=== PATIENT | male | born 1945 ===

== ENCOUNTER 2017-03-11 07:27 | Inpatient (IN) | payer MEDICARE, MEDICAID ==
[~2017-03-11] VITALS: Ht 165.1 cm; Wt 53.5 kg
[2017-03-11] VITALS (12 sets, daily range): BP systolic 116–171; BP diastolic 61–87
[2017-03-11] MEDS ORDERED: ASPI-757 PO (07:48)
--- NOTE | 2017-03-11 07:48 | ER Report ---
History and Physical Time Seen By MD: 07:40 HPI/ROS CC: Nausea and vomiting HPI: 71-year-old male with a past medical history of mental delay, suicidal mediations and attempts, hypertension presents to the emergency department with nausea and vomiting by 4 days. Apparently today he did have an emesis which was dark in nature. It is hard to ascertain whether or not it was coffee-ground. He has also had diarrhea. Today his stools are soft but not watery. He does complain of abdominal pain that hard to ascertain exactly the nature, characteristic, or level of the pain. I cannot get any more information from the patient. The caregiver is giving partial information but not specifics. When I looked in the patient's mouth does appear to be coffee-ground in nature as it is staining underwear from the mouth. My concern is possible GI bleed. ROS: 12 point review of systems essentially negative other than what's mentioned in history of present illness. NURSES AND OLD MEDICAL RECORDS: Reviewed PMH: Reviewed SURGICAL HX: Reviewed FAMILY HX: Noncontributory SOCIAL HX: Patient has a sheltered home. VITAL SIGNS: Reviewed CONSTITUTIONAL: 70-year-old male in moderate distress. PHYSICAL EXAM: HEENT: Pupils equal round reactive to light and accommodate, EOMI, tympanic membranes pearly white umbo present with good light reflex. Lips dry mucous membranes moist gums nonbleeding uvula midline and rises equally with phonation, oropharynx noninjected, teeth intact. NECK: Neck supple, thyroid not appreciated, anterior and posterior cervical lymphadenopathy not appreciated. Trachea midline and rises equally with phonation. CARDIAC: S1-S2 regular rate rhythm no murmurs rubs or gallops. LUNGS: Lungs clear bilaterally posteriorly in all morillo. Good air movement. ABDOMEN: Abdomen soft, nondistended, bowel sounds active in all 4 quadrants, no bruits noted, no CVA tenderness. MUSCULOSKELETAL: Strength 4 out of 5 x 4 extremities, no deformities noted. NEUROLOGIC: Patient alert and oriented by 3 Allergies: Coded Allergies: Penicillins (Verified Allergy, Mild, 03/11/17) chlorpromazine (Verified Allergy, Unknown, 03/11/17) Home Meds Reported Medications Bupropion Hcl (BUPROPION HCL) 100 Mg Tablet, 100 MG PO BID, TAB 03/11/17 Bacitracin/Polymyxin B Sulfate (BACITRACIN-POLYMYXIN EYE OINT) 3.5 Gm Oint...g. , 3.5 GM OP 03/11/17 Atenolol (ATENOLOL) 50 Mg Tablet, 2 TAB PO QDAY, TAB 03/11/17 Aspirin (ASPIRIN) 325 Mg Tablet, 325 MG PO Q4-6H Y for prevent stroke, TAB 03/11/17 Constitutional Vital Sign - Last 24 Hours 03/11/17 03/11/17 03/11/17 03/11/17 07:40 07:42 07:45 07:57 Temp 98.3 Pulse ??? 75 Resp 18 B/P (MAP) 104/62 (76) Pulse Ox 92 O2 Delivery Room Air 03/11/17 03/11/17 03/11/17 03/11/17 08:02 08:11 08:12 08:15 Pulse ??? B/P (MAP) 82/39 (53) 100/61 (74) 100/59 (73) Pulse Ox 89 03/11/17 03/11/17 03/11/17 03/11/17 08:27 08:30 08:45 08:57 Pulse 72 ??? B/P (MAP) 113/65 (81) 116/58 (77) Pulse Ox 90 94 03/11/17 03/11/17 03/11/17 03/11/17 09:00 09:12 09:15 09:15 Pulse 75 B/P (MAP) 119/63 (81) 104/56 (72) Pulse Ox 84 O2 Flow Rate 2.0 03/11/17 03/11/17 03/11/17 03/11/17 09:20 09:30 09:35 09:45 Pulse ??? 73 B/P (MAP) 118/89 (99) 119/73 (88) Pulse Ox 96 03/11/17 03/11/17 03/11/17 03/11/17 09:50 10:00 10:05 10:15 Pulse 73 73 B/P (MAP) 128/66 (86) 129/71 (90) Pulse Ox 97 97 03/11/17 10:20 Pulse 76 Pulse Ox 96 Intake and Output 03/11/17 03/11/17 03/12/17 15:00 23:00 07:00 Intake Total 1000 ml Balance 1000 ml Medical Decision Making Data Points Result Diagram: 03/11/1782903/11/17 0830 Laboratory Hematology Test 03/11/17 00:00 03/11/17 08:30 03/11/17 10:45 Stool Occult Blood (IFOB) Negative (NEGATIVE) Red Blood Count 4.37 M/uL (4.00-5.60) Mean Corpuscular Volume 95.1 fL (80.0-96.0) Mean Corpuscular Hemoglobin 32.8 pg (26.0-33.0) Mean Corpuscular Hemoglobin Concent 34.5 g/dL (32.0-36.0) Red Cell Distribution Width 14.9 % (11.5-14.5) Mean Platelet Volume 9.3 fL (7.2-11.1) Neutrophils (%) (Auto) 72.6 % (39.4-72.5) Lymphocytes (%) (Auto) 14.1 % (17.6-49.6) Monocytes (%) (Auto) 13.2 % (4.1-12.4) Eosinophils (%) (Auto) 0.0 % (0.4-6.7) Basophils (%) (Auto) 0.1 % (0.3-1.4) Nucleated RBC Relative Count (auto) 0.0 /100WBC Neutrophils # (Auto) 6.1 K/uL (2.0-7.4) Lymphocytes # (Auto) 1.2 K/uL (1.3-3.6) Monocytes # (Auto) 1.1 K/uL (0.3-1.0) Eosinophils # (Auto) 0.0 K/uL (0.0-0.5) Basophils # (Auto) 0.0 K/uL (0.0-0.1) Nucleated RBC Absolute Count (auto) 0.00 K/uL Peripheral Blood Smear No Y/N Prothrombin Time 14.5 seconds (12.0-14.4) Prothromb Time International Ratio 1.12 Activated Partial Thromboplast Time 30 seconds (23-35) Sodium Level 136 mmol/L (137-145) Potassium Level 4.8 mmol/L (3.5-5.0) Chloride Level 101 mmol/L (98-107) Carbon Dioxide Level 23 mmol/L (22-30) Blood Urea Nitrogen 34 mg/dl (9-21) Creatinine 1.10 mg/dl (0.66-1.25) Glomerular Filtration Rate Calc > 60.0 Random Glucose 296 mg/dl (75-110) Calcium Level 9.6 mg/dl (8.4-10.2) Total Bilirubin 1.0 mg/dl (0.2-1.3) Aspartate Amino Transf (AST/SGOT) 13 U/L (0-35) Alanine Aminotransferase (ALT/SGPT) 25 U/L (0-56) Alkaline Phosphatase 60 U/L (0-126) Total Protein 5.9 gm/dl (6.3-8.2) Albumin 3.0 g/dl (3.5-5.0) Amylase Level < 30 U/L (0-110) Lipase 20 U/L (23-300) Urine Color Yellow Urine Clarity Slightly-cloudy Urine pH 5.0 pH (4.8-9.5) Urine Specific [place] 1.023 Urine Protein Negative mg/dL (NEGATIVE) Urine Glucose (UA) 500 mg/dL (NEGATIVE) Urine Ketones Trace mg/dL (NEGATIVE) Urine Blood Negative (NEGATIVE) Urine Nitrite Negative (NEGATIVE) Urine Bilirubin Negative (NEGATIVE) Urine Urobilinogen Negative mg/dL (0.2-1.9) Urine Leukocyte Esterase Negative (NEGATIVE) Urine RBC <1 /HPF (0-2/HPF) Urine WBC 3 /HPF (0-5/HPF) Urine Squamous Epithelial Cells None /LPF (</=FEW) Urine Transitional Epithelial Cells Few /LPF (NONE-FEW) Urine Bacteria Negative /HPF (NONE-FEW) Urine Hyaline Casts Moderate /LPF (NONE-FEW) Urine Mucus Few /HPF (NONE-FEW) Chemistry Test 03/11/17 00:00 03/11/17 08:30 03/11/17 10:45 Stool Occult Blood (IFOB) Negative (NEGATIVE) White Blood Count 8.4 k/uL (4.5-11.0) Red Blood Count 4.37 M/uL (4.00-5.60) Hemoglobin 14.3 g/dL (14.0-18.0) Hematocrit 41.6 % (42.0-52.0) Mean Corpuscular Volume 95.1 fL (80.0-96.0) Mean Corpuscular Hemoglobin 32.8 pg (26.0-33.0) Mean Corpuscular Hemoglobin Concent 34.5 g/dL (32.0-36.0) Red Cell Distribution Width 14.9 % (11.5-14.5) Platelet Count 222 K/uL (150-450) Mean Platelet Volume 9.3 fL (7.2-11.1) Neutrophils (%) (Auto) 72.6 % (39.4-72.5) Lymphocytes (%) (Auto) 14.1 % (17.6-49.6) Monocytes (%) (Auto) 13.2 % (4.1-12.4) Eosinophils (%) (Auto) 0.0 % (0.4-6.7) Basophils (%) (Auto) 0.1 % (0.3-1.4) Nucleated RBC Relative Count (auto) 0.0 /100WBC Neutrophils # (Auto) 6.1 K/uL (2.0-7.4) Lymphocytes # (Auto) 1.2 K/uL (1.3-3.6) Monocytes # (Auto) 1.1 K/uL (0.3-1.0) Eosinophils # (Auto) 0.0 K/uL (0.0-0.5) Basophils # (Auto) 0.0 K/uL (0.0-0.1) Nucleated RBC Absolute Count (auto) 0.00 K/uL Peripheral Blood Smear No Y/N Prothrombin Time 14.5 seconds (12.0-14.4) Prothromb Time International Ratio 1.12 Activated Partial Thromboplast Time 30 seconds (23-35) Glomerular Filtration Rate Calc > 60.0 Calcium Level 9.6 mg/dl (8.4-10.2) Total Bilirubin 1.0 mg/dl (0.2-1.3) Aspartate Amino Transf (AST/SGOT) 13 U/L (0-35) Alanine Aminotransferase (ALT/SGPT) 25 U/L (0-56) Alkaline Phosphatase 60 U/L (0-126) Total Protein 5.9 gm/dl (6.3-8.2) Albumin 3.0 g/dl (3.5-5.0) Amylase Level < 30 U/L (0-110) Lipase 20 U/L (23-300) Urine Color Yellow Urine Clarity Slightly-cloudy Urine pH 5.0 pH (4.8-9.5) Urine Specific [place] 1.023 Urine Protein Negative mg/dL (NEGATIVE) Urine Glucose (UA) 500 mg/dL (NEGATIVE) Urine Ketones Trace mg/dL (NEGATIVE) Urine Blood Negative (NEGATIVE) Urine Nitrite Negative (NEGATIVE) Urine Bilirubin Negative (NEGATIVE) Urine Urobilinogen Negative mg/dL (0.2-1.9) Urine Leukocyte Esterase Negative (NEGATIVE) Urine RBC <1 /HPF (0-2/HPF) Urine WBC 3 /HPF (0-5/HPF) Urine Squamous Epithelial Cells None /LPF (</=FEW) Urine Transitional Epithelial Cells Few /LPF (NONE-FEW) Urine Bacteria Negative /HPF (NONE-FEW) Urine Hyaline Casts Moderate /LPF (NONE-FEW) Urine Mucus Few /HPF (NONE-FEW) Coagulation Test 03/11/17 08:30 Prothrombin Time 14.5 seconds Prothromb Time International Ratio 1.12 Activated Partial Thromboplast Time 30 seconds Urinalysis Test 03/11/17 10:45 Urine Color Yellow Urine Clarity Slightly-cloudy Urine pH 5.0 pH (4.8-9.5) Urine Specific [place] 1.023 Urine Protein Negative mg/dL (NEGATIVE) Urine Glucose (UA) 500 mg/dL (NEGATIVE) Urine Ketones Trace mg/dL (NEGATIVE) Urine Blood Negative (NEGATIVE) Urine Nitrite Negative (NEGATIVE) Urine Bilirubin Negative (NEGATIVE) Urine Urobilinogen Negative mg/dL (0.2-1.9) Urine Leukocyte Esterase Negative (NEGATIVE) Urine RBC <1 /HPF (0-2/HPF) Urine WBC 3 /HPF (0-5/HPF) Urine Squamous Epithelial Cells None /LPF (</=FEW) Urine Transitional Epithelial Cells Few /LPF (NONE-FEW) Urine Bacteria Negative /HPF (NONE-FEW) Urine Hyaline Casts Moderate /LPF (NONE-FEW) Urine Mucus Few /HPF (NONE-FEW) ED Course/Re-evaluation ED Course Patient received Protonix 40 mg IV. Patient also received fluid hydration. Patient's Hemoccult was negative but does appear to be coffee-ground emesis in his oral cavity. I discussed the case with Dr. Dejesus, surgeon. He will take the patient to the OR for EGD. Decision to Disposition Date: Mar 11, 2017 Decision to Disposition Time: 12:10 Depart Departure Latest Vital Signs Vital Signs Date Time Temp Pulse Resp B/P (MAP) Pulse Ox O2 Delivery O2 Flow Rate FiO2 03/11/17 10:20 76 96 03/11/17 10:15 129/71 (90) 03/11/17 09:15 2.0 03/11/17 07:40 98.3 18 Room Air Impression: Primary Impression: Upper GI bleed Condition: Condition Unchanged Disposition: ADMIT FROM ER TO OR WILMAN VASQUEZ MD Mar 11, 2017 07:48
[2017-03-11] MEDS ORDERED: BACI3.5O25 OD (07:49)
[2017-03-11] MEDS ORDERED: ATEN-1 PO (07:49)
[2017-03-11] MEDS ORDERED: NS(*) 0.9% 1000 ML BAG 1,000 ML IV ONE (07:57)
[2017-03-11] MEDS ORDERED: FLUSH 10 ML SYR IV ONE (08:00)
[2017-03-11] MEDS ORDERED: ONDANSETRON 4 MG/2 ML VIAL IVP ONE (08:00)
[2017-03-11] MEDS ORDERED: PANTOPRAZOLE SOD 40 MG IV VIAL IVP ONE (08:00)
[2017-03-11 08:48] LABS: PLATELET COUNT, AUTOMATED 222 K/uL (150-450)
[2017-03-11 09:03] LABS: INR 1.12
[2017-03-11] MEDS ORDERED: BUPR-149 PO (10:07)
[2017-03-11] MEDS ORDERED: NORMOSOL R SOLN(*) 1000 ML BAG 1,000 ML IV ONE (12:55)
[2017-03-11] MEDS ORDERED: SUCCINYLCHOL CHL 200MG/10ML VL ONE (15:57)
[2017-03-11] MEDS ORDERED: LIDOCAINE MPF 1% 5 ML VIAL ONE (15:57)
[2017-03-11] MEDS ORDERED: DEXAMETHASONE SOD PHOS 10MG/ML ONE (15:57)
[2017-03-11] MEDS ORDERED: ONDANSETRON 4 MG/2 ML VIAL ONE (15:57)
[2017-03-11] MEDS ORDERED: PROPOFOL EMUL(*) 10MG/ML 20 ML 20 ML ONE (15:57)
[2017-03-11] MEDS ORDERED: fentaNYL CITR 100 MCG/2 ML AMP ONE (16:17)
[2017-03-11] MEDS ORDERED: [UNRECOGNIZED DRUG - OTHER] TOP (16:19)
[2017-03-11] MEDS ORDERED: [UNRECOGNIZED DRUG - OTHER] (16:19)
[2017-03-11] MEDS ORDERED: RANI-324 PO (16:19)
[2017-03-11] MEDS ORDERED: LACT-213 PO (16:19)
[2017-03-11] MEDS ORDERED: CALC-649 PO (16:19)
[2017-03-11] MEDS ORDERED: SODCTAB PO (16:19)
[2017-03-11] MEDS ORDERED: [UNRECOGNIZED DRUG - OTHER] TOP (16:19)
[2017-03-11] MEDS ORDERED: SULF-198 PO (16:19)
[2017-03-11] MEDS ORDERED: BUPR-124 PO (16:19)
[2017-03-11] MEDS ORDERED: CETY454C2 TP (16:19)
[2017-03-11] MEDS ORDERED: MOM PO (16:19)
[2017-03-11] MEDS ORDERED: FES4PT PO (16:19)
[2017-03-11] MEDS ORDERED: MULT-865 PO (16:19)
[2017-03-11] MEDS ORDERED: VIT1CAPS39 PO (16:19)
[2017-03-11] MEDS ORDERED: DOXA2TAB58 PO (16:19)
[2017-03-11] MEDS ORDERED: VAL250 PO (16:19)
[2017-03-11] MEDS ORDERED: VALS160T22 PO (16:19)
--- NOTE | 2017-03-11 16:53 | Post Operative Note ---
Operative Note - ENT Operative Day Date: Mar 11, 2017 Time: 16:39 Physicians Surgeon: Oleg Sales Attendant: None Anesthesia: GETA Diagnosis Pre-Op Diagnosis: Upper GI Bleed Post-Op Diagnosis: Suspected Candidal Esophagitis, no ulceration or active bleeding Procedure Findings: pseudomembranous esophagitis along the entire length. Normal stomach except for large hiatal hernia. Normal duodenum. Procedure(s): EGD with Biopsy - cold forceps Specimen Removed:(Maybe N/A): 1 - Distal esophagus to pathology 2 - Mid-esophagus to micro for mitchel evaluation 3 - Proximal esophagus to pathology Complications: None Fluids Fluids: 800ml Estimated Blood Loss: <5ml Dictated Date OP Note Dictated: Mar 11, 2017 Time OP Note Dictated: 16:52 ([id number]) HARRIS COLON MD Mar 11, 2017 16:53
--- NOTE | 2017-03-11 17:09 | General Surgery Consultation ---
History of Present Illness Chief Complaint Vomiting, coffee ground emesis in the back of the mouth. History of Present Illness Mr. Hua is a 71yo male who is a resident in a senior care. He presents to the ED along with one of his caregivers who has been with him for about 4 years. He had a vomiting episode on Wednesday and again this am. This mornings vomitus was dark in color which prompted their concern to bring him to the ED. In addition to this, he has been more lethargic than normal over the past couple of days. He was seen for intractable hiccoughs on 03/02 which have persisted. He has had these once previously in 2014. He has not had any fevers or chills at home. He reportedly has a history of esophageal ulcerations in 1997 though I do not have any additional details. His last endoscopy was around 1999 with a colonoscopy in 2005. He does take Zantac as part of his regular medications. History Home Meds Reported Medications Valsartan (DIOVAN) 160 Mg Tablet, 160 MG PO DAILY 03/11/17 Valproic Acid (VALPROIC ACID) 250 Mg Cap, 250 MG PO QID, CAP 03/11/17 Fesoterodine Fumarate (TOVIAZ) 4 Mg Tabsr, 4 MG PO DAILY 03/11/17 Sodium Chloride (SODIUM CHLORIDE) 1 Gm Tab, 1 GM PO DAILY, TAB 03/11/17 Ranitidine Hcl (ZANTAC) 150 Mg Tablet, 150 MG PO BID, TAB 03/11/17 Vit C/Elisabeth Ac/Lut/Copper/Znox (PRESERVISION LUTEIN SOFTGEL) 1 Each Capsule, 1 EACH PO BID, CAPSULE 03/11/17 Magnesium Hydroxide (MILK OF MAGNESIA) 400 Mg/5 Ml Oral.susp, 30 ML PO HS, BOTTLE 03/11/17 Multivitamin (DAILY MULTIPLE VITAMIN) 1 Each Tablet, 1 TAB PO DAILY 03/11/17 [body powder] No Conflict Check, 1 JANNET TOP DAILY After showering and drying off, Kehinde should be assisted in applying cornstarch powder to his groin area each day. 03/11/17 [equate body powder] No Conflict Check, 1 JANNET TOP DAILY Sprinkle a light amount on clean, dry feet daily prior to putting on socks and shoes 03/11/17 Lactose-Free Food (ENSURE LIQUID) 237 Ml Liquid, 237 ML PO HS 03/11/17 Doxazosin Mesylate (DOXAZOSIN MESYLATE) 2 Mg Tablet, 2 MG PO HS 03/11/17 [closys toothpaste] No Conflict Check, 1 JANNET BID 03/11/17 Cetyl Alc/Stearyl Alc/Pg/Sls (CETAPHIL CREAM) 454 Gm Cream..g., 454 GM TP HS Apply to both feet before bed 03/11/17 Calcium Carbonate/Vitamin D3 (CALCIUM 600 + VIT D 200 TABLET) 1 Each Tablet, 1 EACH PO DAILY 03/11/17 Bupropion Hcl (BUPROPION XL) 150 Mg Tab.er.24h, 150 MG PO QDAY, #10 TAB 03/11/17 Bacitracin/Polymyxin B Sulfate (BACITRACIN-POLYMYXIN EYE OINT) 3.5 Gm Oint...g. , 3.5 GM OD BID 03/11/17 Atenolol (ATENOLOL) 50 Mg Tablet, 2 TAB PO QDAY, TAB 03/11/17 Aspirin (ASPIRIN) 325 Mg Tablet, 325 MG PO DAILY, TAB 03/11/17 Discontinued Reported Medications Sulfamethoxazole/Trimet 800-160 Mg Tab (BACTRIM DS TABLET) 1 Each Tablet, 1 TAB PO Q12H, TAB 1 tab by mouth every 12 hours to treat cellulitis in leg. Started 03/04/17 at 0800 -KT 03/11/17 Bupropion Hcl (BUPROPION HCL) 100 Mg Tablet, 100 MG PO BID, TAB 03/11/17 Allergies: Coded Allergies: Penicillins (Verified Allergy, Mild, 03/11/17) chlorpromazine (Verified Allergy, Unknown, 03/11/17) Review of Systems Constitutional: No Fever, No Weight Loss Gastrointestinal: Nausea, Vomiting, No Diarrhea, Other (anorexic) Exam Vital Signs Vital Signs Date Time Temp Pulse Resp B/P (MAP) Pulse Ox O2 Delivery O2 Flow Rate FiO2 03/11/17 15:17 98.2 74 22 141/86 (104) 94 Oxy Mask 4.0 General Appearance: Alert, Awake Neuro: No Gross deficits (baseline for him per his caregiver) Eyes: PERRLA ENT: Normal Neck: No Masses Cardiovascular: Normal Rhythm & Peripheral Pulses Respiratory: No Respiratory Distress (though harsh upper airway sounds), Clear to Auscultation GI: Abd Soft and Non-Tender : Normal Musculoskeletal: No Weakness/Pain Extremities: Soft and Non Tender Psych: Alert & Oriented X3 Medical Decision Making Data Points Result Diagram: 03/11/17 0830 03/11/17 0830 Assessment and Plan Problems: (1) Esophagitis Status: Acute Assessment & Plan: Mr. Hua has a complicated medical history made more difficult by his mental disability. His caregiver knows him well and was excellent in helping work through his history. He appears to have been sick over the past week with non-specific findings. His glucose today was 297 despite normally being diet controlled. He has some coffee-ground appearing sputum in his mouth though there was no bright red blood and his stool was normal in color and guiac negative. He does not have a leukocytosis. I will plan on performing an EGD to evaluate if he has an acute upper GI bleed. Time Spent: > 30 min Venous Thromboembolism VTE Risk Physician Assess for VTE Risk: Yes Patient's VTE Risk: Low VTE Diagnostic Test 2 Days Prior to Admit: No Antithrombotics Is Pt On Any Antithrombotics?: No HARRIS COLON MD Mar 11, 2017 17:09
[2017-03-11] MEDS ORDERED: NS(*) 0.9% 1000 ML BAG 1,000 ML IV PRN (17:43)
[2017-03-11] MEDS ORDERED: MAGNESIUM HYDROXIDE* 30ML UDCP PO PRN (17:45)
--- NOTE | 2017-03-11 18:10 | History & Physical ---
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 The history is from the ER provider and staff because the patient is not communicative. He has become more hoarse and weak over the last couple of days. He is sleeping more and has a cough. Normally, he can help with transfers, but is less able to do so. No reported fevers or chills. He vomited yesterday and today a dark substance. No black or bloody stools. He has developed hiccups. History Problems: (1) HTN (hypertension) Status: Chronic (2) BPH (benign prostatic hyperplasia) Status: Chronic (3) Mental retardation Status: Chronic Home Meds Reported Medications Valsartan (DIOVAN) 160 Mg Tablet, 160 MG PO DAILY 03/11/17 Valproic Acid (VALPROIC ACID) 250 Mg Cap, 250 MG PO QID, CAP 03/11/17 Fesoterodine Fumarate (TOVIAZ) 4 Mg Tabsr, 4 MG PO DAILY 03/11/17 Sodium Chloride (SODIUM CHLORIDE) 1 Gm Tab, 1 GM PO DAILY, TAB 03/11/17 Ranitidine Hcl (ZANTAC) 150 Mg Tablet, 150 MG PO BID, TAB 03/11/17 Vit C/Elisabeth Ac/Lut/Copper/Znox (PRESERVISION LUTEIN SOFTGEL) 1 Each Capsule, 1 EACH PO BID, CAPSULE 03/11/17 Magnesium Hydroxide (MILK OF MAGNESIA) 400 Mg/5 Ml Oral.susp, 30 ML PO HS, BOTTLE 03/11/17 Multivitamin (DAILY MULTIPLE VITAMIN) 1 Each Tablet, 1 TAB PO DAILY 03/11/17 [body powder] No Conflict Check, 1 JANNET TOP DAILY After showering and drying off, Kehinde should be assisted in applying cornstarch powder to his groin area each day. 03/11/17 [equate body powder] No Conflict Check, 1 JANNET TOP DAILY Sprinkle a light amount on clean, dry feet daily prior to putting on socks and shoes 03/11/17 Lactose-Free Food (ENSURE LIQUID) 237 Ml Liquid, 237 ML PO HS 03/11/17 Doxazosin Mesylate (DOXAZOSIN MESYLATE) 2 Mg Tablet, 2 MG PO HS 03/11/17 [closys toothpaste] No Conflict Check, 1 JANNET BID 03/11/17 Cetyl Alc/Stearyl Alc/Pg/Sls (CETAPHIL CREAM) 454 Gm Cream..g., 454 GM TP HS Apply to both feet before bed 03/11/17 Calcium Carbonate/Vitamin D3 (CALCIUM 600 + VIT D 200 TABLET) 1 Each Tablet, 1 EACH PO DAILY 03/11/17 Bupropion Hcl (BUPROPION XL) 150 Mg Tab.er.24h, 150 MG PO QDAY, #10 TAB 03/11/17 Bacitracin/Polymyxin B Sulfate (BACITRACIN-POLYMYXIN EYE OINT) 3.5 Gm Oint...g. , 3.5 GM OD BID 03/11/17 Atenolol (ATENOLOL) 50 Mg Tablet, 2 TAB PO QDAY, TAB 03/11/17 Aspirin (ASPIRIN) 325 Mg Tablet, 325 MG PO DAILY, TAB 03/11/17 Discontinued Reported Medications Sulfamethoxazole/Trimet 800-160 Mg Tab (BACTRIM DS TABLET) 1 Each Tablet, 1 TAB PO Q12H, TAB 1 tab by mouth every 12 hours to treat cellulitis in leg. Started 03/04/17 at 0800 -KT 03/11/17 Bupropion Hcl (BUPROPION HCL) 100 Mg Tablet, 100 MG PO BID, TAB 03/11/17 Allergies: Coded Allergies: Penicillins (Verified Allergy, Mild, 03/11/17) chlorpromazine (Verified Allergy, Unknown, 03/11/17) Other Social/Family Hx Lives at [facility]. Hx Smoking: No Hx Alcohol Use: No Hx Substance Use Disorder: No Review of Systems All Systems Reviewed/Normal: Yes, Except as Noted Exam Vital Signs Vital Signs Date Time Temp Pulse Resp B/P (MAP) Pulse Ox O2 Delivery O2 Flow Rate FiO2 03/11/17 17:38 76 20 95 03/11/17 15:17 98.2 141/86 (104) Oxy Mask 4.0 General Appearance: Alert, Awake, No Acute Distress Neuro: Other (Doesn't answer questions, but follows commands. Has hiccups) Cardiovascular: Regular Rate and Rhythm Respiratory: Clear to Auscultation GI: Abd Soft and Non-Tender Extremities: No Edema Medical Decision Making Data Points Result Diagram: 03/11/17 0830 03/11/17 0830 Item Value Date Time Prothromb Time International Ratio 1.12 03/11/17 0830 Urine RBC <1 /HPF 03/11/17 1045 Urine WBC 3 /HPF 03/11/17 1045 Urine Squamous Epithelial Cells None /LPF 03/11/17 1045 Urine Transitional Epithelial Cells Few /LPF 03/11/17 1045 Urine Bacteria Negative /HPF 03/11/17 1045 Urine Hyaline Casts Moderate /LPF H 03/11/17 1045 Urine Glucose (UA) 500 mg/dL 03/11/17 1045 Urine Ketones Trace mg/dL 03/11/17 1045 Stool Occult Blood (IFOB) Negative 03/11/17 0000 Assessment and Plan Problems: (1) Esophagitis Status: Acute Assessment & Plan: He had an EGD that showed pseudomembranous changes throughout the esophagus. See Dr. Dejesus's note. Bx's were done. He has elevated glucose and was recently on Bactrim, so it could be related to yeast. Will start Fluconazole and treat with scheduled GI cocktail. Will place on a pureed diet. (2) Hyperglycemia Status: Acute Assessment & Plan: Will check glucose AC and HS. Will cover with a SSI level 2. A1C is pending. (3) Hiccups Status: Acute Assessment & Plan: Likely, related to above. Will follow and treat if needed. He apparently had this about 5 years ago that required hospitalization. (4) Mental retardation Status: Chronic Assessment & Plan: Continue bupropion and valproic acid. (5) HTN (hypertension) Status: Chronic Assessment & Plan: Continue atenolol and valsartan. (6) BPH (benign prostatic hyperplasia) Status: Chronic Assessment & Plan: Continue doxazosin and Toviaz. Copies to: MICHAEL LING MD; DAVE SHIPLEY DO Venous Thromboembolism Antithrombotics Is Pt On Any Antithrombotics?: No Exam Sepsis Risk: No Definite Risk PRABHU FITZGERALD MD Mar 11, 2017 18:09
[2017-03-11] MEDS ORDERED: GI COCKTAIL 60 ML BTL PO SCH (18:30)
[2017-03-11] MEDS: GI COCKTAIL 60 ML BTL PO SCH (19:19)
[2017-03-11] MEDS: BACITRACIN/POLYMY B OINT 3.5GM OD SCH (20:48)
[2017-03-11] MEDS: VALPROIC ACID 250 MG CAP PO SCH (20:48)
[2017-03-11] MEDS: RANITIDINE HCL 150 MG TAB PO SCH (20:48)
[2017-03-11] MEDS: INSULIN HUM LISPRO 100 UN/ML 3 ML VIAL SUBQ PRN (20:48)
[2017-03-11] MEDS ORDERED: DOXAZOSIN MESYLATE 2 MG TAB PO SCH (21:00)
[2017-03-11] MEDS ORDERED: FLUCONAZOLE 200 MG/100ML PRMIX 100 ML IVPB SCH (21:00)
[2017-03-12 04:03] VITALS: BP 99/48
[2017-03-12 06:06] LABS: PLATELET COUNT, AUTOMATED 179 K/uL (150-450)
[2017-03-12 07:31] VITALS: BP 98/65
[2017-03-12] MEDS: GI COCKTAIL 60 ML BTL PO SCH ×2 (07:31→12:32)
[2017-03-12 07:50] VITALS: BP 125/79
[2017-03-12] MEDS: BACITRACIN/POLYMY B OINT 3.5GM OD SCH (08:31)
[2017-03-12] MEDS: RANITIDINE HCL 150 MG TAB PO SCH (08:31)
[2017-03-12] MEDS: VALPROIC ACID 250 MG CAP PO SCH ×2 (08:32→12:31)
[2017-03-12] MEDS ORDERED: SODIUM CHLORIDE 1 GR TAB PO SCH (09:00)
[2017-03-12] MEDS ORDERED: FESOTERODINE FUMARATE 4 MG PO SCH (09:00)
[2017-03-12] MEDS ORDERED: VALSARTAN 80 MG TAB PO SCH (09:00)
[2017-03-12] MEDS ORDERED: buPROPion XL 150 MG TABCR PO SCH (09:00)
[2017-03-12] MEDS ORDERED: ENOXAPARIN 40 MG/0.4ML SYR SC SCH (09:00)
[2017-03-12] MEDS: INSULIN HUM LISPRO 100 UN/ML 3 ML VIAL SUBQ PRN (09:11)
--- NOTE | 2017-03-12 09:52 | General Surgery Progress Note ---
Subjective Progress Notes Subjective No new complaints. Hungry. Tolerated his eggs this morning. Physical Exam Vital Signs Date Time Temp Pulse Resp B/P (MAP) Pulse Ox O2 Delivery O2 Flow Rate FiO2 03/12/17 07:50 Oxy Mask 2.0 03/12/17 07:50 98.6 97 20 125/79 (94) 93 Intake and Output 03/13/17 07:00 # Bowel Movements 1 General Appearance: Alert, Awake Respiratory: No Respiratory Distress GI: Soft and Non-Tender Psych: Alert & Oriented X3, Appropriate Mood & Affect Result Diagram: 03/12/17 0538 03/12/17 05 Item Value Date Time White Blood Count 8.4 k/uL 03/11/17829 Hematocrit 41.6 % L 03/11/17829 Creatinine 1.10 mg/dl 03/11/17829 Sodium Level 136 mmol/L L 03/11/17829 Assessment and Plan Problems: (1) Esophagitis Status: Acute Assessment & Plan: Mr. Hua has a complicated medical history made more difficult by his mental disability. His caregiver knows him well and was excellent in helping work through his history. He appears to have been sick over the past week with non-specific findings. His glucose today was 297 despite normally being diet controlled. He has some coffee-ground appearing sputum in his mouth though there was no bright red blood and his stool was normal in color and guiac negative. He does not have a leukocytosis. I will plan on performing an EGD to evaluate if he has an acute upper GI bleed. 03/12/17: his wet prep surprisingly did not demonstrate any yeast structures though his clinical picture still strongly suggests this diagnosis. He had a significant amount of inflammation of his entire esophagus. I recommend continuing his IV Diflucan at least another 24 hours before considering PO. Though he is tolerating his diet, he was not eating consistently prior to admission. His pathology will return early next week to determine if there is an underlying malignancy. Time Spent: < 30 min Exam Sepsis Risk: No Definite Risk HARRIS COLON MD Mar 12, 2017 09:35
[2017-03-12] MEDS ORDERED: FLUC100T39 PO (10:43)
[2017-03-12] MEDS ORDERED: FLUCONAZOLE 100 MG TAB PO ONE (12:30)
[2017-03-12 14:23] VITALS: Ht 165.1 cm; Wt 53.5 kg
--- NOTE | 2017-03-12 15:05 | Hospitalist Depart ---
Discharge Summary Reason for Hosp/Final Diag: (1) Esophagitis Status: Acute Hospital Course & Plan: 71yo male with a h/o congenital cognitive delay, BPH, and recently on Bactrim for cellulitis who was brought to the ER for weakness and hoarseness. The history is from the ER provider and staff because the patient is not communicative. He has become more hoarse and weak over the last couple of days. He is sleeping more and has a cough. Normally, he can help with transfers, but is less able to do so. No reported fevers or chills. He vomited yesterday and today a dark substance. No black or bloody stools. He has developed hiccups. He had an EGD that showed pseudomembranous changes throughout the esophagus. See Dr. Dejesus's note. Bx's were done. He has elevated glucose and was recently on Bactrim, so it could be related to yeast. Will start Fluconazole and treat with scheduled GI cocktail. Will place on a pureed diet. 03/12: He is currently stable and back to his baseline status. He is on Fluconazole for Heide Esophagitis and MMW. He is tolerating diet and liquids and no dysphagia and odynophagia. I will d/c him back to his supervised facility with 20 days on Fluconazole. He should get EGD after he finish his Fluconazole and f/ u with Dr. Dejesus, pathology report is still pending. (2) Hyperglycemia Status: Acute Hospital Course & Plan: Will check glucose AC and HS. Will cover with a SSI level 2. A1C is pending. 03/12: His A1C was 6.7 and he will be followed by his PCP for further diabetes investigation. (3) Hiccups Status: Acute Hospital Course & Plan: Likely, related to above. Will follow and treat if needed. He apparently had this about 5 years ago that required hospitalization. (4) Mental retardation Status: Chronic Hospital Course & Plan: Continue bupropion and valproic acid. (5) HTN (hypertension) Status: Chronic Hospital Course & Plan: Continue atenolol and valsartan. (6) BPH (benign prostatic hyperplasia) Status: Chronic Hospital Course & Plan: Continue doxazosin and Toviaz. Departure Weight (Pounds): 118 Result Diagram: 03/12/1753703/12/17537 Condition: Improved Discharge: Assisted Living Time Spent: < 30 min Discharge Instructions Home Meds Reported Medications Fluconazole (FLUCONAZOLE) 100 Mg Tablet, 100 MG PO QDAY for 20 Days, #20 TAB 0 Refills 03/12/17 Valsartan (DIOVAN) 160 Mg Tablet, 160 MG PO DAILY 03/11/17 Valproic Acid (VALPROIC ACID) 250 Mg Cap, 250 MG PO QID, CAP 03/11/17 Fesoterodine Fumarate (TOVIAZ) 4 Mg Tabsr, 4 MG PO DAILY 03/11/17 Sodium Chloride (SODIUM CHLORIDE) 1 Gm Tab, 1 GM PO DAILY, TAB 03/11/17 Ranitidine Hcl (ZANTAC) 150 Mg Tablet, 150 MG PO BID, TAB 03/11/17 Vit C/Elisabeth Ac/Lut/Copper/Znox (PRESERVISION LUTEIN SOFTGEL) 1 Each Capsule, 1 EACH PO BID, CAPSULE 03/11/17 Magnesium Hydroxide (MILK OF MAGNESIA) 400 Mg/5 Ml Oral.susp, 30 ML PO HS, BOTTLE 03/11/17 Multivitamin (DAILY MULTIPLE VITAMIN) 1 Each Tablet, 1 TAB PO DAILY 03/11/17 [body powder] No Conflict Check, 1 JANNET TOP DAILY After showering and drying off, Kehinde should be assisted in applying cornstarch powder to his groin area each day. 03/11/17 [equate body powder] No Conflict Check, 1 JANNET TOP DAILY Sprinkle a light amount on clean, dry feet daily prior to putting on socks and shoes 03/11/17 Lactose-Free Food (ENSURE LIQUID) 237 Ml Liquid, 237 ML PO HS 03/11/17 Doxazosin Mesylate (DOXAZOSIN MESYLATE) 2 Mg Tablet, 2 MG PO HS 03/11/17 [closys toothpaste] No Conflict Check, 1 JANNET BID 03/11/17 Cetyl Alc/Stearyl Alc/Pg/Sls (CETAPHIL CREAM) 454 Gm Cream..g., 454 GM TP HS Apply to both feet before bed 03/11/17 Calcium Carbonate/Vitamin D3 (CALCIUM 600 + VIT D 200 TABLET) 1 Each Tablet, 1 EACH PO DAILY 03/11/17 Bupropion Hcl (BUPROPION XL) 150 Mg Tab.er.24h, 150 MG PO QDAY, #10 TAB 03/11/17 Bacitracin/Polymyxin B Sulfate (BACITRACIN-POLYMYXIN EYE OINT) 3.5 Gm Oint...g. , 3.5 GM OD BID 03/11/17 Atenolol (ATENOLOL) 50 Mg Tablet, 2 TAB PO QDAY, TAB 03/11/17 Aspirin (ASPIRIN) 325 Mg Tablet, 325 MG PO DAILY, TAB 03/11/17 Discontinued Reported Medications Sulfamethoxazole/Trimet 800-160 Mg Tab (BACTRIM DS TABLET) 1 Each Tablet, 1 TAB PO Q12H, TAB 1 tab by mouth every 12 hours to treat cellulitis in leg. Started 03/04/17 at 0800 -KT 03/11/17 Bupropion Hcl (BUPROPION HCL) 100 Mg Tablet, 100 MG PO BID, TAB 03/11/17 Diet: Regular Activity: As Tolerated Special Instructions: Follow-up as needed. Take full course of antibiotics. See primary care provider or return to ER if worsening symptoms. Copies to: HARRIS DEJESUS MD Venous Thromboembolism Antithrombotics Is Pt On Any Antithrombotics?: No MILO MORRISSEY MD Mar 12, 2017 15:05
--- NOTE | 2017-03-13 11:35 | OPERATIVE REPORT 1 ---
EVENT DATE: March 11, 2017 SURGEON: Jesse Dejesus MD ANESTHESIOLOGIST: Mehdi Sweet MD ANESTHESIA: General endotracheal PREOPERATIVE DIAGNOSIS Upper gastrointestinal bleed. POSTOPERATIVE DIAGNOSIS Suspected candidal esophagitis with no ulceration and no evidence of active bleeding. PROCEDURE PERFORMED EGD with cold forceps biopsy. ESTIMATED BLOOD LOSS Less than 5 mL. INTRAVENOUS FLUIDS 800 mL BRIEF HISTORY Mr. Hua is a 71-year-old male who presents from the emergency department with some coffee-ground emesis noted in the back of his throat. I was asked to evaluate him for an EGD to identify the source of potential upper GI bleed. FINDINGS He did not have any active bleeding. He did have pseudomembranous esophagitis along the entire length of the esophagus. The stomach itself was normal, except for a large paraesophageal hernia. Duodenum was normal, with no evidence of ulceration or bleeding. DESCRIPTION OF PROCEDURE The patient was taken to the operating room, placed in the supine position. After induction of anesthesia, the patient was intubated. EGD tube was passed without difficulty into his throat. Pseudomembranous esophagitis was noted immediately upon entering the esophagus and along the entire length. The scope was advanced into the duodenum. Examination continued down to the second portion of the duodenum. There was no evidence of duodenitis or duodenal ulcerations. There was no evidence of bleeding. The stomach was normal in appearance, with no gastritis and no ulcerations. Retroflexion of the scope demonstrated a large based hiatal hernia without evidence of ulcerations or twisting. Withdrawal of the scope into the esophagus was performed. It was very difficult to identify the Z-line due to the amount of inflammatory changes that were present along the entire length. Biopsies were taken at the distal esophagus that were sent to pathology. Some of the pseudomembranous tissue was removed from the midesophagus and sent for micro. Additional biopsies were performed in the proximal esophagus that were sent again for pathology. He was allowed to awaken and was extubated in the operating room. He was taken to the recovery room in good condition. He tolerated the procedure well. SPECIMENS 1. Distal esophagus biopsies for pathology. 2. Midesophagus samples for micro. 3. Proximal esophageal biopsies for pathology. [facility]
[2017-03-13] MEDS ORDERED: INFLUENZA VIRUS VAC 0.5 ML SYR IM ONLY ONE (17:45)
== END 2017-03-12 13:55 | disposition home or self-care (01) | DRG 370 ==
LOC: EDBD 07:28 → ER 07:28 → OR 12:18 → MED 14:00
PROVIDERS: ADMIT Surgery; ATTEND Surgery
PROC: 0DB18ZX Excision of Upper Esophagus, Via Natural or Artificial Opening Endoscopic, Diagnostic (ICD-10-PCS; 2017-03-11)
PROC: 0DB28ZX Excision of Middle Esophagus, Via Natural or Artificial Opening Endoscopic, Diagnostic (ICD-10-PCS; 2017-03-11)
PROC: 0DB38ZX Excision of Lower Esophagus, Via Natural or Artificial Opening Endoscopic, Diagnostic (ICD-10-PCS; principal; 2017-03-11 16:02)
DX: B37.81 Candidal esophagitis (principal); K44.9 Diaphragmatic hernia without obstruction or gangrene; I10 Essential (primary) hypertension; N40.0 Benign prostatic hyperplasia without lower urinary tract symptoms; E11.65 Type 2 diabetes mellitus with hyperglycemia; K21.9 Gastro-esophageal reflux disease without esophagitis; F79 Unspecified intellectual disabilities; Z88.0 Allergy status to penicillin; Z88.8 Allergy status to other drugs, medicaments and biological substances
CPT/HCPCS: 36415; 36416; 81001; 82040; 82150; 82247; 82274; 82310; 82374; 82435; 82565; 82947; 82948; 83036; 83690; 84075; 84132; 84155; 84295; 84450; 84460; 84520; 85025; 85610; 85730; 86850; 86900; 86901; 87210; 88305; 88313; 96361; 96374; 96375; 99284; C9113; J0330; J1100; J1450; J2001; J2405; J2704; J3010; J7030